=== PATIENT | female | born 1980 | race Caucasian/White ===

== ENCOUNTER 2016-12-12 07:23 | Day surgery (SDC) | payer BC ==
[~2016-12-12] VITALS: Ht 154.9 cm; Wt 55.5 kg
[~2016-12-12 07:23] MED LIST: DOCU-30 PO; HYDR-3240 PO; IBUP200T48 PO; PREN1TAB56 PO
[2016-12-12] MEDS ORDERED: LACTATED RINGERS 1,000 ML IV SCH (07:44)
[2016-12-12 08:18] VITALS: BP 125/80
[2016-12-12] MEDS ORDERED: IBUP400T PO (08:18)
[2016-12-12] MEDS ORDERED: MISOPROSTOL 200 MCG TABLET ONE (08:41)
[2016-12-12] MEDS ORDERED: FENTANYL PF 100 MCG/2ML ONE (08:41)
[2016-12-12] MEDS ORDERED: OXYTOCIN 10 UNITS/ML, 1ML ONE ×2 (08:41→09:52)
[2016-12-12] MEDS ORDERED: MIDAZOLAM 1 MG/ML, 2ML ONE (08:41)
[2016-12-12] MEDS ORDERED: SILVER NITRATE STICK TP ONE (08:42)
[2016-12-12] MEDS ORDERED: METHYLERGONOVINE 0.2 MG/ML IM ONE (08:42)
[2016-12-12] MEDS ORDERED: METOCLOPRAMIDE 5 MG/ML, 2ML IV PRN (09:00)
[2016-12-12] MEDS ORDERED: PROMETHAZINE 25 MG/ML, 1ML IV PRN (09:00)
[2016-12-12] MEDS ORDERED: MEPERIDINE/PF 25MG/0.5ML IVPush PRN (09:00)
[2016-12-12] MEDS ORDERED: HYDROmorphone 1 MG/ML, 1ML IV PRN (09:00)
[2016-12-12] MEDS ORDERED: ONDANSETRON 2MG/ML, 2ML IVPush PRN (09:00)
[2016-12-12] MEDS ORDERED: OXYcodone 5 MG/5 ML ORAL.SOL UDC PO PRN (09:00)
[2016-12-12] MEDS ORDERED: FENTANYL PF 100 MCG/2ML IV PRN (09:00)
[2016-12-12] MEDS ORDERED: PROPOFOL 10 MG/ML, 20ML ONE (09:52)
[2016-12-12] MEDS ORDERED: KETOROLAC 30 MG/1 ML ONE (09:52)
[2016-12-12] MEDS ORDERED: ONDANSETRON 2MG/ML, 2ML ONE (09:52)
[2016-12-12] MEDS ORDERED: DEXAMETHASONE 4 MG/ML, 1ML ONE (09:52)
== END 2016-12-12 12:25 | disposition home or self-care (01) ==
LOC: OUT 07:23
PROVIDERS: ATTEND Specialist
DX: O02.0 Blighted ovum and nonhydatidiform mole (principal); Z91.018 Allergy to other foods
CPT/HCPCS: 36415; 59812; 85014; 85018; 88305; J1100; J1885; J2250; J2405; J2590; J2704; J3010; J7120; J2210

== ENCOUNTER 2017-11-09 23:37 | Inpatient (IN) | payer BC, OTHER ==
[~2017-11-09] VITALS: Ht 154.9 cm; Wt 72.0 kg
[2017-11-09] MEDS: LACTATED RINGERS 1,000 ML IV SCH (00:05)
[~2017-11-09 23:37] MED LIST changes: +DOCU-131 PO; -DOCU-30 PO; +IBUP-1221 PO; -IBUP200T48 PO; +IBUP200T49 PO
[2017-11-09] MEDS ORDERED: OXYTOCIN 30U/ 0.9% NaCL 500ML 500 ML IV ONE (23:55)
[2017-11-10] MEDS ORDERED: FENTANYL PF 100 MCG/2ML IV PRN
[2017-11-10] MEDS ORDERED: ONDANSETRON 2MG/ML, 2ML IVPush PRN
[2017-11-10] MEDS ORDERED: FENTANYL PF 100 MCG/2ML IVPush PRN
[2017-11-10 00:05] VITALS: BP 138/88
[2017-11-10] MEDS ORDERED: NEWBORN KIT ONE (00:07)
[2017-11-10] MEDS ORDERED: OXYTOCIN 30U/ 0.9% NaCL 500ML 0 ML ONE (00:07)
[2017-11-10] MEDS ORDERED: OXYTOCIN 30U/ 0.9% NaCL 500ML 500 ML ONE ×2 (00:19→05:38)
[2017-11-10 00:27] LABS: BASOPHILS # (AUTO) 0.04 x10^3/uL (0-0.1); BASOPHILS % (AUTO) 0 % (0-1); EOSINOPHILS % (AUTO) 1 % (1-7); LYMPHOCYTES # (AUTO) 2.46 x10^3/uL (1-3.4); LYMPHOCYTES % (AUTO) 21 % (22-44); MD NO; MEAN CORPUSCULAR HEMOGLOBIN 31.3 pg (27.0-34.8); MEAN CORPUSCULAR HGB CONC 33.7 g/dL (32.4-35.8); MEAN PLATELET VOLUME 8.8 fL (7.4-10.4); MONOCYTES # (AUTO) 0.89 x10^3/uL (0.2-0.8); MONOCYTES % (AUTO) 8 % (2-9); NEUTROPHILS # (AUTO) 8.35 x10^3/uL (1.8-6.8); NEUTROPHILS % (AUTO) 71 % (42-75); PLATELET COUNT 200 x10^3/uL (130-400); RED BLOOD COUNT 4.16 x10^6/uL (3.82-5.3); RED CELL DISTRIBUTION WIDTH 14.4 % (9.6-15.2)
[2017-11-10] MEDS ORDERED: FENTANYL/BUPIV./NS/PF 250 ML EPIDCONT ONE (00:56)
[2017-11-10] MEDS ORDERED: LIDOCAINE/PF 1.5%-EPI 1:200K, 30ML ONE (00:57)
[2017-11-10] MEDS ORDERED: BUPIVACAINE 0.25% ONE (00:57)
[2017-11-10] MEDS: LACTATED RINGERS 1,000 ML IV SCH (00:58)
[2017-11-10] MEDS ORDERED: FENTANYL/BUPIV./NS/PF 250 ML EPIDCONT SCH (01:57)
[2017-11-10] MEDS ORDERED: LACTATED RINGERS 1,000 ML IV SCH (01:57)
[2017-11-10] MEDS ORDERED: EPHEDRINE 50 MG/ML, 1ML IVPush PRN (02:00)
[2017-11-10] MEDS ORDERED: LACTATED RINGERS 1,000 ML IVBOLUS PRN (02:00)
[2017-11-10] MEDS ORDERED: NALOXONE 0.4 MG/ML, 1ML IVPush PRN (02:00)
[2017-11-10] MEDS: D5%-LACTATED RINGERS 1,000 ML IV SCH ×2 (02:04→07:55)
[2017-11-10] MEDS ORDERED: OXYTOCIN 30U/ 0.9% NaCL 500ML 500 ML IV PRN (02:05)
[2017-11-10] MEDS ORDERED: OXYcodone IR 5MG TABLET PO PRN (08:00)
[2017-11-10] MEDS ORDERED: DIPH,PERTUSS(ACELL),TET VAC/PF NC IM-VACC PRN (08:00)
[2017-11-10] MEDS ORDERED: RHOGAM FROM BLOOD BANK 1 NOTE EA IM/IV ONE (08:00)
[2017-11-10] MEDS ORDERED: MAGNESIUM HYDROXIDE 8%, 30ML UDC PO PRN (08:00)
[2017-11-10] MEDS ORDERED: DOCUSATE 100 MG CAPSULE PO PRN (08:00)
[2017-11-10] MEDS ORDERED: MISOPROSTOL 200 MCG TABLET PR PRN (08:00)
[2017-11-10] MEDS ORDERED: OXYcodone/APAP 5/325MG TABLET PO PRN (08:00)
[2017-11-10] MEDS ORDERED: MEASLES,MUMPS&RUBELLA VACC/PF 0.5 ML SQ-VACC PRN (08:00)
[2017-11-10] MEDS ORDERED: ONDANSETRON 2MG/ML, 2ML IV PRN (08:00)
[2017-11-10] MEDS ORDERED: CALCIUM CARBONATE 500 MG TAB.CHEW PO PRN (08:00)
[2017-11-10] MEDS ORDERED: IBUPROFEN 600 MG TABLET ONE (08:24)
[2017-11-10] MEDS: IBUPROFEN 600 MG TABLET PO PRN ×3 (08:27→20:44)
[2017-11-10] MEDS: OXYTOCIN 30U/ 0.9% NaCL 500ML 500 ML IV SCH ×2 (08:28→20:15)
[2017-11-10 09:00] VITALS: BP 125/78
[2017-11-10] MEDS: PRENATAL VIT/IRON/FA 1 EACH TABLET PO SCH (09:00)
[2017-11-10 12:00] VITALS: BP 105/71
[2017-11-10 15:58] LABS: BASOPHILS # (AUTO) 0.02 x10^3/uL (0-0.1); BASOPHILS % (AUTO) 0 % (0-1); EOSINOPHILS # (AUTO) 0.06 x10^3/uL (0-0.4); EOSINOPHILS % (AUTO) 0 % (1-7); LYMPHOCYTES # (AUTO) 2.47 x10^3/uL (1-3.4); LYMPHOCYTES % (AUTO) 16 % (22-44); MD NO; MEAN CORPUSCULAR HEMOGLOBIN 31.9 pg (27.0-34.8); MEAN CORPUSCULAR HGB CONC 33.9 g/dL (32.4-35.8); MEAN CORPUSCULAR VOLUME 94.1 fL (80-100); MEAN PLATELET VOLUME 8.8 fL (7.4-10.4); MONOCYTES # (AUTO) 1.15 x10^3/uL (0.2-0.8); MONOCYTES % (AUTO) 7 % (2-9); NEUTROPHILS # (AUTO) 11.93 x10^3/uL (1.8-6.8); NEUTROPHILS % (AUTO) 76 % (42-75); PLATELET COUNT 199 x10^3/uL (130-400); RED CELL DISTRIBUTION WIDTH 14.6 % (9.6-15.2)
[2017-11-10 16:00] VITALS: BP 124/82
[2017-11-10 19:45] VITALS: BP 122/74
[2017-11-10 23:45] VITALS: BP 135/84
[2017-11-11] MEDS: OXYTOCIN 30U/ 0.9% NaCL 500ML 500 ML IV SCH (03:56)
[2017-11-11 04:45] VITALS: BP 121/78
[2017-11-11] MEDS: IBUPROFEN 600 MG TABLET PO PRN ×2 (04:55→12:19)
[2017-11-11 07:40] VITALS: BP 113/76
[2017-11-11] MEDS: PRENATAL VIT/IRON/FA 1 EACH TABLET PO SCH (09:00)
[2017-11-11] MEDS ORDERED: IBUP-1222 PO (09:26)
== END 2017-11-11 14:00 | disposition home or self-care (01) | DRG 775 ==
LOC: LDOP 23:37 → LDIP 11-10 00:28 → 2NW 11-10 08:58
PROVIDERS: ADMIT Obstetrics & Gynecology Gynecology; ATTEND Obstetrics & Gynecology Gynecology
PROC: 10E0XZZ Delivery of Products of Conception, External Approach (ICD-10-PCS; principal; 2017-11-10)
PROC: 0KQM0ZZ Repair Perineum Muscle, Open Approach (ICD-10-PCS; 2017-11-10)
PROC: 3E033VJ Introduction of Other Hormone into Peripheral Vein, Percutaneous Approach (ICD-10-PCS; 2017-11-10)
PROC: 3E0234Z Introduction of Serum, Toxoid and Vaccine into Muscle, Percutaneous Approach (ICD-10-PCS; 2017-11-10)
PROC: 3E0R3BZ Introduction of Anesthetic Agent into Spinal Canal, Percutaneous Approach (ICD-10-PCS; 2017-11-10)
PROC: 00HU33Z Insertion of Infusion Device into Spinal Canal, Percutaneous Approach (ICD-10-PCS; 2017-11-10)
DX: O76 Abnormality in fetal heart rate and rhythm complicating labor and delivery (principal); O99.354 Diseases of the nervous system complicating childbirth; O69.81X0 Labor and delivery complicated by cord around neck, without compression, not applicable or unspecified; O99.52 Diseases of the respiratory system complicating childbirth; J45.909 Unspecified asthma, uncomplicated; G43.909 Migraine, unspecified, not intractable, without status migrainosus; O70.1 Second degree perineal laceration during delivery; Z37.0 Single live birth; Z23 Encounter for immunization; Z3A.40 40 weeks gestation of pregnancy
CPT/HCPCS: 36415; 82803; 85025; 86850; 86900; J3490; J2590; J7120; J7121